=== PATIENT | female | born 1990 | race African-American/Black ===

== ENCOUNTER 2021-01-19 10:08 | Outpatient (CLI) | payer OTHER ==
[2021-01-19 19:12] LABS: SARS-CoV-2 PCR by NAA Not Detected (NotDetected)
== END 2021-01-19 10:09 | disposition home or self-care (01) ==
LOC: CSHLAB 10:08
PROVIDERS: ATTEND Student in an Organized Health Care Education/Training Program
DX: Z20.822 Contact with and (suspected) exposure to COVID-19 (principal)
CPT/HCPCS: U0003; U0005

== ENCOUNTER 2021-01-24 09:48 | Inpatient (IN) | payer OTHER ==
[2021-01-24] MEDS ORDERED: Famotidine/PF 20 mg/2ml Vial SLOW IVP PRN (10:33)
[2021-01-24] MEDS ORDERED: Lactated Ringer's 1,000 ML IV SCH (10:33)
[2021-01-24] MEDS ORDERED: CEFAZOLIN 2 GM in Premix Bag 1 BAG IVPB SCH (10:33)
[2021-01-24] MEDS ORDERED: Promethazine HCl 25 MG/ML VIAL IM PRN ×2 (10:33→11:43)
[2021-01-24] MEDS ORDERED: Bicitra 30 ML UDCUP PO PRN (10:33)
[2021-01-24] MEDS ORDERED: hydrALAZINE 20 MG/ML VIAL SLOW IVP PRN ×2 (10:33→15:19)
[2021-01-24] MEDS ORDERED: Ondansetron PF 4 MG/2 ML Vial IVP PRN ×3 (10:33→15:19)
[2021-01-24 11:11] LABS: Mean Corpuscular HGB CONC 32.5 g/dL (32.0-36.0); Mean Corpuscular Hemoglobin 29.9 pg (27.0-33.0); Mean Corpuscular Volume 91.8 fl (81.6-98.3); Mean Platelet Volume 9.5 fl (7.4-10.4); Platelet Count 281 10x3/uL (150-450); RBC Distribution Width 14.1 % (11.5-14.5); Red Blood Cell (RBC) Count 3.68 10x6/uL (3.90-5.03)
[2021-01-24 11:28] VITALS: BMI 48.1
[2021-01-24 11:39] LABS: Hep B Surf Ag Non-Reactive S/CO (NonReactive); Syphilis Antibody Nonreactive (Nonreactive); Syphilis Antibody Index 0.16 S/CO (<1.00 Non-Reactive)
[2021-01-24] MEDS ORDERED: Promethazine HCl 25 MG SUPP PR PRN (11:43)
[2021-01-24] MEDS ORDERED: Naloxone HCl 0.4 mg/ml Vial IVP PRN ×2 (11:43)
[2021-01-24] MEDS ORDERED: Ondansetron HCl/PF 4 MG/2 ML Vial IVP PRN (11:43)
[2021-01-24] MEDS ORDERED: Ketorolac Tromethamine 30 MG/ML VIAL IVP PRN (11:43)
[2021-01-24] MEDS ORDERED: diphenhydrAMINE 50 MG/ML VIAL IVP PRN (11:43)
[2021-01-24] MEDS ORDERED: Fentanyl 100 MCG/2 ML VIAL SLOW IVP PRN (11:43)
[2021-01-24] MEDS ORDERED: Meperidine HCl/PF 25 MG/ML VIAL SLOW IVP PRN (11:43)
[2021-01-24] MEDS ORDERED: Naloxone HCl 0.4 mg/ml Vial IV PRN (11:43)
[2021-01-24] MEDS ORDERED: Hydrocerin (Eucerin) Cream 120 gm Jar TOP PRN (11:43)
[2021-01-24] MEDS ORDERED: Communication Order-Pharmacy FS SCH (11:45)
[2021-01-24] MEDS ORDERED: Ketorolac Tromethamine 30 MG/ML VIAL IVP SCH (11:45)
[2021-01-24 12:15] LABS: HBSAg Index 0.18 S/CO (0-0.99)
[2021-01-24] MEDS ORDERED: ePHEDrine Sulfate 50 MG/10 ML VIAL ONE (13:17)
[2021-01-24] MEDS ORDERED: ePHEDrine Sulfate 50 MG/10 ML VIAL SLOW IVP SCH (14:00)
[2021-01-24] MEDS ORDERED: Simethicone Chewable 80 MG TAB PO PRN (15:19)
[2021-01-24] MEDS ORDERED: Lanolin Ointment 7 GM TUBE TOP PRN (15:19)
[2021-01-24] MEDS ORDERED: Boostrix 0.5 ML (Tdap) VIAL IM ONE (15:19)
[2021-01-24] MEDS ORDERED: HYDROcodone/Acetaminophen 5/325 mg Tablet PO PRN (15:19)
[2021-01-24] MEDS ORDERED: Zolpidem Tartrate 5 MG TAB PO PRN (15:19)
[2021-01-24] MEDS ORDERED: Bisacodyl 10 MG SUPP PR PRN (15:19)
[2021-01-24] MEDS ORDERED: NS w/ Oxytocin 30 units 500 ML IV SCH (15:19)
[2021-01-24] MEDS: diphenhydrAMINE 25 MG CAP PO PRN ×2 (17:11→22:06)
[2021-01-24] MEDS: Ferrous Sulfate 325 MG TAB PO SCH (21:34)
[2021-01-24] MEDS: Ibuprofen 800 MG TAB PO SCH (22:06)
[2021-01-24] MEDS: Docusate Calcium (SURFAK) 240 MG CAP PO SCH (22:07)
[2021-01-25 04:48] LABS: Hemoglobin 9.4 g/dL (12.0-15.5); Mean Corpuscular HGB CONC 31.8 g/dL (32.0-36.0); Mean Corpuscular Hemoglobin 29.5 pg (27.0-33.0); Mean Corpuscular Volume 92.8 fl (81.6-98.3); Mean Platelet Volume 9.7 fl (7.4-10.4); Platelet Count 233 10x3/uL (150-450); Red Blood Cell (RBC) Count 3.19 10x6/uL (3.90-5.03); White Blood Cell (WBC) Count 8.9 10x3/uL (3.5-10.5)
[2021-01-25] MEDS: Ibuprofen 800 MG TAB PO SCH ×3 (05:49→21:47)
[2021-01-25] MEDS: diphenhydrAMINE 25 MG CAP PO PRN (05:49)
[2021-01-25] MEDS: Ferrous Sulfate 325 MG TAB PO SCH ×2 (08:17→21:50)
[2021-01-25] MEDS: Prenatal Vitamin 1 TAB PO SCH (08:17)
[2021-01-25] MEDS: Docusate Calcium (SURFAK) 240 MG CAP PO SCH ×2 (08:17→21:46)
[2021-01-25] MEDS: HYDROcodone/Acetaminophen 5/325 mg Tablet PO PRN ×3 (09:26→21:47)
[2021-01-26] MEDS: Ibuprofen 800 MG TAB PO SCH (06:01)
[2021-01-26] MEDS: HYDROcodone/Acetaminophen 5/325 mg Tablet PO PRN (06:03)
[2021-01-26 07:44] VITALS: BP 120/72; TEMP 99.2
[2021-01-26] MEDS: Ferrous Sulfate 325 MG TAB PO SCH (08:02)
[2021-01-26] MEDS: Docusate Calcium (SURFAK) 240 MG CAP PO SCH (08:02)
[2021-01-26] MEDS: Prenatal Vitamin 1 TAB PO SCH (08:02)
== END 2021-01-26 12:11 | disposition home or self-care (01) | DRG 784 ==
LOC: CSHLD 09:48 → CSHPED 15:40
PROVIDERS: ADMIT Obstetrics & Gynecology; ATTEND Obstetrics & Gynecology
PROC: 10D00Z1 Extraction of Products of Conception, Low, Open Approach (ICD-10-PCS; principal; 2021-01-24)
PROC: 0UB70ZZ Excision of Bilateral Fallopian Tubes, Open Approach (ICD-10-PCS; 2021-01-24)
DX: O34.211 Maternal care for low transverse scar from previous cesarean delivery (principal); D62 Acute posthemorrhagic anemia; O13.4 Gestational [pregnancy-induced] hypertension without significant proteinuria, complicating childbirth; O99.214 Obesity complicating childbirth; E66.9 Obesity, unspecified; O90.81 Anemia of the puerperium; Z3A.37 37 weeks gestation of pregnancy; Z37.0 Single live birth; Z80.9 Family history of malignant neoplasm, unspecified
CPT/HCPCS: 36415; 51702; 85027; 86780; 86850; 86900; 86901; 87340; 88302; J2550